=== PATIENT | female | born 1985 | race Caucasian/White ===

== ENCOUNTER 2022-06-13 09:44 | Day surgery (SDC) | payer BC, SELFPAY ==
[2022-06-13] VITALS (25 sets, daily range): BP systolic 114–143; BP diastolic 57–100; PULSE 77–96; RESP 12–20; TEMP 36.1–36.9; O2SAT 86–96; BMI 38.1
[2022-06-13] MEDS: LACTATED RINGERS 1000 ML 1,000 ML 100 ML IV (10:30)
[2022-06-13 10:45] LABS: HCG Qualitative* Negative (Negative)
[2022-06-13] MEDS: KETOROLAC 30 MG/ML inj IVP (13:42)
--- NOTE | 2022-06-13 14:07 | W.ANESCHARGE ---
Anesthesia Charges Start Date/Time Anesthesia Start Date: 06/13/22 Anesthesia Start Time: 12:09 Stop Date/Time Anesthesia Stop Date: 06/13/22 Anesthesia Stop Time: 14:02 Summary Emergency: No
[2022-06-13] MEDS: fentaNYL 100 MCG/2 ML inj 50 MCG IVP ×2 (14:08→14:14)
--- NOTE | 2022-06-13 14:16 | W.PM.GYNPROC ---
Procedure Note Date Seen: 06/13/22 Procedure Details: PREOPERATIVE DIAGNOSIS: Menorrhagia with regular cycle Undesired fertility POSTOPERATIVE DIAGNOSIS: Menorrhagia with regular cycle Undesired fertility PROCEDURE: Hysteroscopy, dilation and curettage, Berkley endometrial ablation Laparoscopy with bilateral salpingectomy, peritoneal biopsies SURGEON: Dot Ng MD ANESTHESIA: General, paracervical block IV FLUIDS: 800 mL crystalloid URINE OUTPUT: Approximately 100 mL EBL: 5 mL FINDINGS: 1. Upon exam under anesthesia, uterus was mobile, anteverted, and there were no palpable adnexal masses. Cervix and vagina were normal in appearance. 2. Upon hysteroscopy, the endometrium was diffusely thickened. The endometrial cavity was normal in shape and size. The sounded depth was 9 cm, cervical length 4 cm. 3. Upon laparoscopy, survey of the upper abdomen revealed a normal appearance to the inferior edge of the liver, stomach, and gallbladder. Bowels were grossly normal in appearance. Appendix was not visualized. Survey of the pelvis revealed normal appearance to the uterus. The left fallopian tube was slightly scarred enclosed within the left broad ligament. Bilateral ovaries and right fallopian tube were normal in appearance. There were a few very small cystic lesions along the left posterior uterus and the origin of the left uterosacral ligament, each approximately 1 mm in greatest dimension. COMPLICATIONS: None PROCEDURE IN DETAIL: Patient was taken to the operating room with IV running. She was positioned in dorsal lithotomy position with her legs fully supported in Yellofin stirrups. Monitored anesthesia care was administered. She was prepped and draped in the usual sterile fashion. Exam under anesthesia was performed for the above-noted findings. Speculum was inserted. Cervix visualized and grasped along the anterior lip with a single-tooth tenaculum. Cervix was serially dilated to accommodate the TRUCLEAR hysteroscope. This was assembled with saline inflow and outflow in place. The line was flushed of bubbles. The hysteroscope was advanced through the cervix into the endometrial cavity for the above noted findings. The hysteroscope was removed. Sharp curettage was performed circumferentially until a gritty texture was noted throughout. Curettings were sent to pathology. The hysteroscope was reintroduced and thorough sampling of the endometrium was confirmed. The hysteroscope was again removed. Uterine and cervical measurements were then performed with uterine sound, with findings as noted above. Cervix was serially dilated to accommodate the Berkley handheld device. The device was then powered on. The hand-held device was inserted through the cervix and the array was deployed. Appropriate uterine width was noted. The intracervical balloon was then inflated. The pedal was pushed to activate to the cavity integrity test, both of which were passed. The ablation cycle then ensued. Thereafter, the intracervical balloon was deflated, and the device was retracted from the uterus. Tenaculum was removed from the anterior lip of cervix. Hemostasis was noted. [employer] uterine manipulator was placed. Patient's legs were then placed in neutral position. Attention was turned to patient's abdomen. Infraumbilical area was infiltrated with a small amount of Marcaine. A 5 mm infraumbilical incision was made with a scalpel and carried down to the underlying layer of fascia with the hemostat. The fascia was grasped with a Sly clamp. 5 mm camera was placed within the 5 mm Fios Kii trocar, and advanced under direct visualization through the anterior abdominal wall into the peritoneal cavity, while tenting up the anterior abdominal wall. The trocar was removed. The balloon was inflated, holding the port in place. Pneumoperitoneum was achieved. Survey of the abdomen and pelvis revealed the above-noted findings. Two additional port sites were created. The first was in the patient's left lower quadrant, just superomedial to the left ASIS. The second was a hand's breadth superior to and slightly medial to the first. A 5 mm incision was made at each site, after assuring that large vessels were out of harm's way. A 5 mm Fios Kii port was placed at each of these sites, under direct visualization and without complication. The balloon on each of these ports was inflated, holding each in place. Attention was first turned to the left fallopian tube, which was divided from the mesosalpinx, using the Thunder[employer] bipolar cautery device, proceeding laterally to medially, and the tube was amputated at the left uterine cornua. This was removed through the port site and sent to pathology. This procedure was repeated on the patient's right side, and the right fallopian tube was also amputated at the cornua and removed from the patient's abdomen. This was also sent to pathology for further analysis. The above described tiny cystic lesions along the left posterior side of the uterus were removed using Nesha forceps. Attempt was made to fulgurate the base of these, but this was unsuccessful in they were no longer bleeding but the time the attempts were made. The pelvis was then inspected and hemostasis was noted. Procedure was deemed complete. All instruments were removed from the ports. The balloons of all remaining port sites were deflated, and all ports were removed after pneumoperitoneum was released. The skin of each port site was closed in a subcuticular fashion with 4 0 Vicryl. Surgical glue was applied above this. The [employer] uterine manipulator was removed from the uterus. Patient tolerated procedure well and was taken to recovery area in stable condition.
[2022-06-13] MEDS: OXYCODONE 5 MG TABLET PO (14:42)
[2022-06-13] MEDS: ONDANSETRON 2 MG/ML inj 4 MG IVP (15:11)
--- NOTE | 2022-06-13 16:03 | W.ANESCHARGE ---
Anesthesia Charges Start Date/Time Anesthesia Start Date: 06/13/22 Anesthesia Start Time: 12:09 Stop Date/Time Anesthesia Stop Date: 06/13/22 Anesthesia Stop Time: 14:02 Summary Emergency: No
== END 2022-06-13 15:30 | disposition home or self-care (01) ==
PROVIDERS: Anesthesiology; PCP Family Medicine; Visit Provider Obstetrics & Gynecology
PROC: (CPT 58661; principal; 2022-06-13 12:00)
PROC: 0UF98ZZ Fragmentation in Uterus, Via Natural or Artificial Opening Endoscopic (ICD-10-PCS; CPT 58563; 2022-06-13 12:00)
DX: N92.0 Excessive and frequent menstruation with regular cycle (principal); Z30.2 Encounter for sterilization; N80.3 Endometriosis of pelvic peritoneum
CPT/HCPCS: 58563; 58661; 49321; 00840; 00851; 36415; 84703; 86850; 86900; 86901; 88302; 88305; A9270; J0330; J1100; J1170; J1885; J2250; J2405; J2704; J3010; J7120